=== PATIENT | female | born 1995 | race Caucasian/White ===

== ENCOUNTER 2021-03-06 08:10 | Emergency (ER) | payer BC ==
[2021-03-06] MEDS: Sodium Chloride 0.9% 1,000 ML IV ONE ×2 (08:31→09:41)
[2021-03-06] MEDS: Ondansetron 4 MG/2 ML SDV IVPUSH PRN (08:31)
[2021-03-06 08:48] LABS: CHLORIDE,CL 101 mEq/L (98-106); SODIUM,NA 143 mEq/L (136-145)
[2021-03-06] MEDS: Pantoprazole 40 MG Vial IVPUSH SCH (09:15)
[2021-03-06 10:23] LABS: CORONAVIRUS COVID-19 NAA NEGATIVE (NEGATIVE)
== END 2021-03-06 10:59 | disposition home or self-care (01) ==
LOC: CC.ED 08:10
DX: R19.7 Diarrhea, unspecified (principal); Z20.822 Contact with and (suspected) exposure to COVID-19
CPT/HCPCS: 0240U; 36415; 80053; 85025; 86140; 96374; 96375; 99284; C9113; J2405; J7030